=== PATIENT | female | born 1980 | race Caucasian/White ===

== ENCOUNTER → 2024-02-09 12:38 | Outpatient (BNVA) | payer OTHER, SELFPAY | PROVIDERS: Visit Provider Internal Medicine Critical Care Medicine | DX: J45.20 Mild intermittent asthma, uncomplicated (principal); R06.09 Other forms of dyspnea; J45.901 Unspecified asthma with (acute) exacerbation; J84.9 Interstitial pulmonary disease, unspecified; J44.9 Chronic obstructive pulmonary disease, unspecified; J44.89 Other specified chronic obstructive pulmonary disease; J45.21 Mild intermittent asthma with (acute) exacerbation; J98.4 Other disorders of lung; E66.9 Obesity, unspecified; E66.01 Morbid (severe) obesity due to excess calories; Z68.36 Body mass index [BMI] 36.0-36.9, adult; F17.210 Nicotine dependence, cigarettes, uncomplicated; Z71.6 Tobacco abuse counseling; Z79.82 Long term (current) use of aspirin | CPT/HCPCS: 99214 ==

== ENCOUNTER → 2024-06-12 15:09 | Outpatient (BNVA) | payer OTHER, SELFPAY | PROVIDERS: Referring Provider Nurse Practitioner Family; Visit Provider Internal Medicine Cardiovascular Disease | DX: R07.9 Chest pain, unspecified (principal); R94.31 Abnormal electrocardiogram [ECG] [EKG]; R55 Syncope and collapse; R06.09 Other forms of dyspnea; F17.210 Nicotine dependence, cigarettes, uncomplicated; R00.2 Palpitations; J45.909 Unspecified asthma, uncomplicated | CPT/HCPCS: 93005; 99204 ==

== ENCOUNTER → 2024-08-24 09:22 | Outpatient (BNVA) | payer OTHER, SELFPAY | PROVIDERS: PCP Nurse Practitioner; Visit Provider Podiatrist Foot & Ankle Surgery | DX: L60.8 Other nail disorders (principal); L60.3 Nail dystrophy | CPT/HCPCS: 11750; 99203; J9999 ==

== ENCOUNTER 2025-05-02 10:00 | Outpatient (CLI) | payer OTHER, SELFPAY ==
--- NOTE | 2025-05-02 10:00 | MM_ITS ---
WS: [id number] BILATERAL 3D TOMOSYNTHESIS DIGITAL SCREENING MAMMOGRAPHY WITH CAD CLINICAL INFORMATION: SCREENING HISTORY: Screening mammogram. No current complaints. COMPARISON: 2021 TECHNIQUE: Bilateral CC and MLO views. FINDINGS: The breasts are composed of heterogeneous fibroglandular density tissue, which can limit the detection of small underlying mass lesions. No suspicious mass, asymmetry, calcifications, or architectural distortion. No evidence of malignancy. Dense tissue upper outer LEFT breast is stable since 2021 MM/MM [facility] tomosynthesis [id number] IMPRESSION: DENSITY: The breasts are heterogeneously dense, which may obscure small masses. BI-RADS: 2 - Benign FOLLOW UP: 1 Year Follow-up Recommend return to annual screening mammography.
== END 2025-05-02 10:01 | disposition home or self-care (01) ==
LOC: MOBLMAM 10:01
PROVIDERS: PCP Nurse Practitioner; Visit Provider Nurse Practitioner
DX: Z12.31 Encounter for screening mammogram for malignant neoplasm of breast (principal); R92.333 Mammographic heterogeneous density, bilateral breasts; R92.323 Mammographic fibroglandular density, bilateral breasts
CPT/HCPCS: 77063; 77067